=== PATIENT | female | born 1990 | race Caucasian/White ===

== ENCOUNTER 2021-08-10 21:25 | Emergency (ER) | payer OTHER | END 2021-08-10 23:30 | disposition home or self-care (01) | LOC: CSHERS 21:25 | DX: S20.211A Contusion of right front wall of thorax, initial encounter (principal); M54.50 Low back pain, unspecified; V53.5XXA Driver of pick-up truck or van injured in collision with car, pick-up truck or van in traffic accident, initial encounter | CPT/HCPCS: 71045; 72100 ==